=== PATIENT | male | born 1960 | race Caucasian/White ===

== ENCOUNTER 2024-06-10 13:14 | Inpatient (IN) | payer OTHER ==
[2024-06-10 14:07] LABS: Hematocrit 42.1 % (42.0-52.0); Hemoglobin 13.7 g/dL (14.0-18.0); Mean Corpuscular HGB CONC 32.5 g/dL (32.0-36.0); Mean Corpuscular Hemoglobin 28.5 pg (27.0-31.0); Mean Corpuscular Volume 87.5 fL (78.0-98.0); Mean Platelet Volume 10.1 fL (7.4-10.4); Platelet Count 270 10x3/uL (130-400); RBC Distribution Width 12.5 % (11.5-14.5); Red Blood Cell (RBC) Count 4.81 mill/uL (4.70-6.10)
[2024-06-10 14:16] LABS: ALT (SGPT) 20 U/L (8-55); AST (SGOT) 12 U/L (5-34); Albumin 3.7 g/dL (3.4-4.8); Alkaline Phosphatase 159 U/L (40-110); Anion Gap 12 mmol/L (10-20); BUN (Urea Nitrogen) 10 mg/dL (8.4-25.7); Bilirubin, Total 0.3 mg/dL (0.2-1.2); Calc. Creatinine Clearance 0 mL/min (70-130); Calcium 10.7 mg/dL (7.8-10.44); Carbon Dioxide 22 mmol/L (23-31); Chloride 110 mmol/L (98-107); Estimated GFR 96; Globulin 2.7 g/dL (2.4-3.5); Glucose 236 mg/dL (80-115); Lipase 16 U/L (8-78); Potassium 4.8 mmol/L (3.5-5.1); Protein, Total 6.4 g/dL (5.8-8.1); Sodium 139 mmol/L (136-145)
[2024-06-10 14:17] LABS: Troponin I Less than 0.010 ng/mL (< 0.028)
[2024-06-10 14:34] LABS: Eosinophils 28 % (0-10); Lymphocytes 10 % (21-51); Monocytes 9 % (0-10); Neutrophil 49 % (42-75); Platelet Adequacy Comment Platelets Normal; RBC Morphology Within Normal Limits; Reactive Lymphocytes 1 % (0-10); Reflex for Review?? YES
[2024-06-10] MEDS ORDERED: Dextrose 50% Abboject 50 ML SYRINGE SLOW IVP PRN (15:04)
[2024-06-10] MEDS ORDERED: Dextrose 5% in Water 1,000 ML IV PRN (15:04)
[2024-06-10] MEDS ORDERED: Glucagon 1 MG/ML KIT IM PRN (15:04)
[2024-06-10] MEDS ORDERED: Insulin Lispro 100 UNIT/ML 10 ML VIAL SC PRN (15:04)
[2024-06-10] MEDS ORDERED: Senokot S 8.6-50 MG TAB PO PRN (15:05)
[2024-06-10] MEDS ORDERED: Ondansetron PF 4 MG/2 ML Vial IVP PRN (15:05)
[2024-06-10] MEDS ORDERED: Acetaminophen 325 MG TAB PO PRN (15:05)
[2024-06-10] MEDS ORDERED: Ondansetron ODT 4 MG TAB PO PRN (15:05)
[2024-06-10] MEDS ORDERED: Calcium Carbonate 500 MG ChewTAB PO PRN (15:05)
[2024-06-10] MEDS ORDERED: Ipratropium/Albuterol 3 ML NEB NEB PRN (16:09)
[2024-06-10] MEDS: Lactated Ringer's 1,000 ML IV SCH (16:52)
[2024-06-10 17:38] LABS: Troponin I Less than 0.010 ng/mL (< 0.028)
[2024-06-10] MEDS: Atorvastatin Calcium 40 MG TAB PO SCH (20:14)
[2024-06-10 20:45] LABS: Troponin I Less than 0.010 ng/mL (< 0.028)
[2024-06-11] MEDS: Morphine 2 MG/ML VIAL SLOW IVP PRN (01:08)
[2024-06-11] MEDS ORDERED: traMADol HCl 50 MG TAB PO PRN (01:30)
[2024-06-11] MEDS: Nitroglycerin 0.4 MG TAB (25 Tab Bottle) SL PRN (01:35)
[2024-06-11 07:31] LABS: #Basophils 0.06 10x3/uL (0.0-0.2); %Basophils 0.5 % (0.0-1.0); %Eosinophils 19.3 % (0.0-10.0); %Lymphocytes 28.8 % (21.0-51.0); %Monocytes 7.4 % (0.0-10.0); %Neutrophils 43.4 % (42.0-75.0); Hematocrit 43.6 % (42.0-52.0); Hemoglobin 13.8 g/dL (14.0-18.0); Mean Corpuscular HGB CONC 31.7 g/dL (32.0-36.0); Mean Corpuscular Hemoglobin 28.4 pg (27.0-31.0); Mean Corpuscular Volume 89.7 fL (78.0-98.0); Mean Platelet Volume 10.6 fL (7.4-10.4); Platelet Count 253 10x3/uL (130-400); RBC Distribution Width 12.6 % (11.5-14.5); Red Blood Cell (RBC) Count 4.86 mill/uL (4.70-6.10)
[2024-06-11 08:04] LABS: ALT (SGPT) 20 U/L (8-55); AST (SGOT) 14 U/L (5-34); Albumin 3.5 g/dL (3.4-4.8); Alkaline Phosphatase 150 U/L (40-110); Anion Gap 9 mmol/L (10-20); BUN (Urea Nitrogen) 9 mg/dL (8.4-25.7); Bilirubin, Total 0.6 mg/dL (0.2-1.2); Calc. Creatinine Clearance 134 mL/min (70-130); Calcium 10.9 mg/dL (7.8-10.44); Carbon Dioxide 23 mmol/L (23-31); Cardiac Risk 3.6 (Less than 4.5); Chloride 110 mmol/L (98-107); Cholesterol 142 mg/dl (< 200 Desired); Estimated GFR 100; Globulin 2.7 g/dL (2.4-3.5); Glucose 128 mg/dL (80-115); HDL Cholesterol 40 mg/dL (>60 Neg Risk); LDL Cholesterol, Calculated 73 mg/dL; Magnesium 1.9 mg/dL (1.6-2.6); Potassium 4.3 mmol/L (3.5-5.1); Protein, Total 6.2 g/dL (5.8-8.1); Sodium 138 mmol/L (136-145); Triglycerides 147 mg/dL (Less than 150)
[2024-06-11] MEDS: Aspirin 81 mg Enteric Coated Tablet PO SCH (09:22)
[2024-06-11] MEDS: Enoxaparin 40 MG (0.4 mL) SYRINGE SC SCH (09:22)
[2024-06-11] MEDS: Amlodipine 5 MG TAB PO SCH (12:36)
[2024-06-11] MEDS: Levothyroxine Sodium 50 MCG TAB PO SCH (12:36)
[2024-06-11] MEDS: Insulin Lispro 100 UNIT/ML 10 ML VIAL SC PRN (14:02)
[2024-06-11] MEDS: metFORMIN 500 MG TAB PO SCH (17:45)
[2024-06-12] MEDS: Levothyroxine Sodium 50 MCG TAB PO SCH (05:42)
[2024-06-12] MEDS ORDERED: Regadenoson 0.4 MG/5 ML SYRINGE ONE (10:06)
[2024-06-12] MEDS: Amlodipine 5 MG TAB PO SCH (12:14)
[2024-06-12 13:13] VITALS: BP 127/79; TEMP 97.8
== END 2024-06-12 17:04 | DRG 313 ==
LOC: SUATTDRO 13:14 → ERS 13:14 → EEVIPCON 13:14 → ERHOLD 15:03 → 2SW 18:36 → OBSVTOIN 06-12 08:09
PROVIDERS: ADMIT Internal Medicine; ATTEND Hospitalist
DX: R07.89 Other chest pain (principal); I10 Essential (primary) hypertension; E78.5 Hyperlipidemia, unspecified; E11.9 Type 2 diabetes mellitus without complications; E83.52 Hypercalcemia; Z79.82 Long term (current) use of aspirin; Z79.899 Other long term (current) drug therapy
CPT/HCPCS: 36415; 36416; 71045; 78452; 80053; 80061; 82310; 83036; 83690; 83735; 83880; 84484; 85025; 85060; 85379; 93005; 93017; 96372; 96374; A9500; A9502; G0378; J1650; J1815; J2272; J2785; J7120

== ENCOUNTER 2024-08-21 15:21 | Emergency (ER) | payer OTHER ==
[2024-08-21 17:21] LABS: #Basophils 0.03 10x3/uL (0.0-0.2); %Basophils 0.3 % (0.0-1.0); %Eosinophils 19.9 % (0.0-10.0); %Lymphocytes 25.5 % (21.0-51.0); %Monocytes 8.4 % (0.0-10.0); %Neutrophils 45.6 % (42.0-75.0); Hematocrit 38.3 % (42.0-52.0); Hemoglobin 12.5 g/dL (14.0-18.0); Mean Corpuscular HGB CONC 32.6 g/dL (32.0-36.0); Mean Corpuscular Hemoglobin 28.3 pg (27.0-31.0); Mean Corpuscular Volume 86.8 fL (78.0-98.0); Mean Platelet Volume 10.7 fL (7.4-10.4); Platelet Count 263 10x3/uL (130-400); RBC Distribution Width 13.1 % (11.5-14.5); Red Blood Cell (RBC) Count 4.41 mill/uL (4.70-6.10)
[2024-08-21 17:43] LABS: ALT (SGPT) 17 U/L (8-55); AST (SGOT) 17 U/L (5-34); Albumin 3.6 g/dL (3.4-4.8); Alkaline Phosphatase 142 U/L (40-110); Anion Gap 11 mmol/L (10-20); BUN (Urea Nitrogen) 10 mg/dL (8.4-25.7); Bilirubin, Total 0.3 mg/dL (0.2-1.2); Calc. Creatinine Clearance 0 mL/min (70-130); Calcium 8.6 mg/dL (7.8-10.44); Carbon Dioxide 24 mmol/L (23-31); Chloride 110 mmol/L (98-107); Estimated GFR 101; Globulin 2.5 g/dL (2.4-3.5); Glucose 164 mg/dL (80-115); Potassium 4.4 mmol/L (3.5-5.1); Protein, Total 6.1 g/dL (5.8-8.1); Sodium 141 mmol/L (136-145)
[2024-08-21 17:48] LABS: Troponin I Less than 0.010 ng/mL (< 0.028)
[2024-08-21] MEDS ORDERED: Ketorolac Tromethamine 30 MG (1 mL) VIAL ONE (18:04)
[2024-08-21] MEDS ORDERED: Acetaminophen 500 MG TAB ONE (18:04)
== END 2024-08-21 18:30 ==
LOC: EEVIPCON 15:21 → ERS 15:21
DX: R07.89 Other chest pain (principal); E11.9 Type 2 diabetes mellitus without complications; E78.2 Mixed hyperlipidemia; I25.2 Old myocardial infarction; I10 Essential (primary) hypertension; Z87.891 Personal history of nicotine dependence; Z79.82 Long term (current) use of aspirin; Z79.899 Other long term (current) drug therapy; Z79.84 Long term (current) use of oral hypoglycemic drugs
CPT/HCPCS: 36415; 71045; 80053; 84484; 85025; 93005; 94760; 96374; J1885